=== PATIENT | male | born 1945 | race Caucasian/White ===

== ENCOUNTER → 2018-01-11 | Outpatient (CLI) | payer MEDICARE, BC ==
--- NOTE | 2018-01-11 18:49 | ECHOF ---
Referral Reason:R60.0 Localized edema MEASUREMENTS -------- HEIGHT: 180.3 cm WEIGHT: 90.7 kg BP: RVIDd: 3.2 cm (< 3.3) IVSd: 1.3 cm (0.6 - 1.1) LVIDd: 4.6 cm (3.9 - 5.3) LVPWd: 1.4 cm (0.6 - 1.1) IVSs: 1.5 cm LVIDs: 2.1 cm LVPWs: 1.5 cm LAESV Index (A-L): 32.95 ml/m Ao Diam: 3.3 cm (2.0 - 3.7) AV Cusp: 1.7 cm (1.5 - 2.6) LA Diam: 3.4 cm (2.7 - 3.8) MV E Geoff: 1.12 m/s MV DecT: 278 ms MV A Geoff: 1.28 m/s MV E/A Ratio: 0.88 RAP: 5.00 mmHg RVSP: 15.99 mmHg FINDINGS -------- Sinus rhythm. This was a technically good study. The left ventricular size is normal. There is mild concentric left ventricular hypertrophy. Overa ll left ventricular systolic function is normal with, an EF between 60 - 65 %. The right ventricle is normal in size and function. LA is midly dilated 29-33ml/m2. RA appears enlarged. Aortic valve is trileaflet and is mildly thickened. There is no evidence of aortic regurgitation. There is no evidence of aortic stenosis. The mitral valve leaflets are mildly thickened. Mild mitral annular calcification present. Mild m itral regurgitation is present. Trace tricuspid regurgitation present. Right ventricular systolic pressure is normal at < 35 mmHg. There is no evidence of pulmonary hypertension. The pulmonic valve was not well visualized. The aortic root size is normal. Normal inferior vena cava with normal inspiratory collapse consistent with estimated right atrial pre ssure of 5 mmHg. There is a trivial pericardial effusion present. CONCLUSIONS -------- 1. Sinus rhythm. 2. This was a technically good study. 3. The left ventricular size is normal. 4. There is mild concentric left ventricular hypertrophy. 5. Overall left ventricular systolic function is normal with, an EF between 60 - 65 %. 6. LA is midly dilated 29-33ml/m2. 7. RA appears enlarged. 8. Aortic valve is trileaflet and is mildly thickened. 9. The mitral valve leaflets are mildly thickened. 10. Mild mitral annular calcification present. 11. Mild mitral regurgitation is present. 12. Trace tricuspid regurgitation present. 13. Right ventricular systolic pressure is normal at < 35 mmHg. 14. There is no evidence of pulmonary hypertension. 15. The pulmonic valve was not well visualized. 16. The aortic root size is normal. GANG SAW OPERATOR: Abelardo Shaffer RDCS
== END | disposition home or self-care (01) ==
LOC: RADECHMAIN 08:26
PROVIDERS: ATTEND Family Medicine
DX: I08.1 Rheumatic disorders of both mitral and tricuspid valves (principal)
CPT/HCPCS: 93306

== ENCOUNTER → 2018-11-08 | Outpatient (CLI) | payer MEDICARE, BC ==
[2018-11-08 17:28] LABS: Basophils # (A) 0.1 k/uL (0-0.2); Basophils % (A) 1 %; Eosinophils # (A) 0.3 k/uL (0-0.7); Eosinophils % (A) 4 %; HCT 40.6 % (39.0-53.0); HGB 13.1 gm/dL (13.0-17.5); Lymphocytes # (A) 1.3 k/uL (1.0-4.8); Lymphocytes % (A) 16 %; MCHC 32.2 g/dL (31.0-37.0); Mean Platelet Volume 7.5; Monocytes # (A) 0.5 k/uL (0-1.0); Monocytes % (A) 6 %; Neutrophils # (A) 6.1 k/uL (1.3-7.7); Neutrophils % (A) 72 %; Platelet Count 227 k/uL (150-450); RBC 4.66 m/uL (4.30-5.90); RDW 14.6 % (11.5-15.5); WBC 8.5 k/uL (3.8-10.6)
[2018-11-08 17:34] LABS: Albumin 4.2 g/dL (3.5-5.0); Calcium 9.3 mg/dL (8.4-10.2); Potassium 4.1 mmol/L (3.5-5.1); Total Bilirubin 0.6 mg/dL (0.2-1.3); Total Protein 6.5 g/dL (6.3-8.2)
== END | disposition home or self-care (01) ==
LOC: LAB 16:45
PROVIDERS: ATTEND Family Medicine
DX: R06.02 Shortness of breath (principal); E78.5 Hyperlipidemia, unspecified; R07.89 Other chest pain; Z79.891 Long term (current) use of opiate analgesic
CPT/HCPCS: 80053; 84443; 85025; 93005

== ENCOUNTER → 2022-03-17 | Outpatient (CLI) | payer MEDICARE, BC ==
--- NOTE | 2022-03-17 10:25 | CT ---
EXAMINATION TYPE: CT abdomen pelvis wo con DATE OF EXAM: 03/17/2022 COMPARISON: Ultrasound kidneys 02/21/2014 HISTORY: Gross Hematuria CT DLP: 586.80 mGycm Automated exposure control for dose reduction was used. TECHNIQUE: Helical acquisition of images was performed from the lung bases through the pelvis. FINDINGS: LUNG BASES: The heart is enlarged and there is a vpjof-vs-ojqavihv sized pericardial effusion. Lung b ases are clear. LIVER/GB: No significant abnormality is appreciated. PANCREAS: No significant abnormality is seen. SPLEEN: No significant abnormality is seen. ADRENALS: No significant abnormality is seen. KIDNEYS: Right kidney: There is a 2 mm posterior calyx midpole calcification. Very mild prominence of the pelv ic calyceal system with no evidence of overt hydronephrosis or hydroureter. No ureteral calcification s. Left kidney: No hydronephrosis or nephrolithiasis. There are 2 hyperdense lesions involving the left kidney the largest measuring 1 cm. Most likely etiology is a hemorrhagic cyst which could be confirme d with MRI to exclude other more aggressive etiologies. Bilateral moderately mild perinephric edema is a nonspecific finding associated with infectious etiol ogy correlate with urinalysis. URINARY BLADDER: No significant abnormality is seen. ADENOPATHY: None visualized. OSSEOUS STRUCTURES: Multilevel hypertrophic and degenerative changes of the spine. With the most mar ked findings at L4-5 and L5-S1. BOWEL: No significant abnormality is seen. OTHER: Atherosclerotic changes of the aorta with no evidence of aneurysm. There is mild subcutaneous edema. Prostate gland is enlarged. Calcifications in the pelvis appear to lie outside of the ureteral system are suggestive of vascular calcifications. IMPRESSION: 1. Nonobstructing 3 mm mid pole right ureteral calculus. 2. There are hyperdense lesions within the left kidney by noncontrast technique most likely on the ba sis of hemorrhagic cyst. Correlation with MRI can be obtained to exclude other more aggressive etiolo gies should can occasionally demonstrate a similar finding. 3. Bilateral mild perinephric edema is a nonspecific finding. Correlation with urinalysis recommended . 4. Marked cardiomegaly with small to moderate pericardial effusion
== END | disposition home or self-care (01) ==
LOC: RADCTMAIN 07:48
PROVIDERS: ATTEND Urology
DX: N20.1 Calculus of ureter (principal); I31.39 Other pericardial effusion (noninflammatory); I51.7 Cardiomegaly; R60.0 Localized edema
CPT/HCPCS: 74176

== ENCOUNTER 2022-08-29 07:43 | Emergency (ER) | payer MEDICARE, BC ==
[2022-08-29 07:53] VITALS: TEMP 98
[2022-08-29] MEDS ORDERED: SODIUM CHLORIDE 0.9% 1,000 ML IV STA (08:04)
--- NOTE | 2022-08-29 08:12 | ED ---
Abdominal Pain HPI - General Chief Complaint: Abdominal Pain Stated Complaint: leg pain/groin pain Time Seen by Provider: 08/29/22 07:54 Source: patient, RN notes reviewed Mode of arrival: ambulatory Limitations: no limitations - History of Present Illness Initial Comments: This is a 77-year-old male who presents to the emergency department for right flank pain. States that the right flank pain is wrapping around into the right groin and is now radiating down the right thigh. This started 4-5 days ago. He notes a history of both kidney stones and kidney failure. The pain in the right groin and right flank feel like a kidney stone, however he has never had pain from a kidney stone and the thigh before. Describes the thigh pain as a spasm. He notes that his mother did have a blood clot in the groin. Denies any pain in the calf or redness/swelling to the leg. He had some nausea earlier in the week, however that has since resolved. Notes that his urine has also been darker than normal. In addition to the symptoms above, states that his blood pressure has been elevated over the last couple of days. He has been increasing his lisinopril and clonidine doses at home. He took his Lisinopril this morning but has not yet taken his Clonidine. Denies any fevers, chills, sore throat, cough, dyspnea, chest pain, palpitations, diarrhea, or headaches. MD Complaint: abdominal pain, flank pain Location: R flank Radiation: RLQ - Related Data Previous Rx's Medication Instructions Recorded Baclofen 5 mg PO TID PRN #15 tablet 08/29/22 Allergies Allergy/AdvReac Type Severity Reaction Status Date / Time Iodinated Contrast Media Allergy Anaphylaxis Verified 08/29/22 07:53 meperidine [From Demerol] Allergy Rash/Hives Verified 08/29/22 07:53 Sulfa (Sulfonamide Allergy Rash/Hives Verified 08/29/22 07:53 Antibiotics) Review of Systems ROS Statement: Those systems with pertinent positive or pertinent negative responses have been documented in the HPI. ROS Other: All systems not noted in ROS Statement are negative. Past Medical History Past Medical History: Diabetes Mellitus, Hypertension Additional Past Medical History / Comment(s): Kidney issues, History of Any Multi-Drug Resistant Organisms: None Reported Past Surgical History: No Surgical Hx Reported Past Psychological History: No Psychological Hx Reported Smoking Status: Never smoker Past Alcohol Use History: None Reported Past Drug Use History: None Reported General Exam Limitations: no limitations General appearance: alert, in distress Head exam: Present: atraumatic, normocephalic, normal inspection Respiratory exam: Present: normal lung sounds bilaterally. Absent: respiratory distress, wheezes, rales, rhonchi, stridor Cardiovascular Exam: Present: regular rate, normal rhythm, normal heart sounds. Absent: systolic murmur, diastolic murmur, rubs, gallop, clicks GI/Abdominal exam: Present: soft, normal bowel sounds. Absent: distended, tenderness, guarding, rebound, rigid, hernia exam: Present: normal inspection. Absent: testicular tenderness Extremities exam: Present: other (Tenderness to palpation over the anterior aspect of the right thigh. No calf tenderness. No erythema or swelling to the leg. 2+ DP and TP pulses and capillary refill <1 second.) Back exam: Present: CVA tenderness (R). Absent: CVA tenderness (L) Neurological exam: Present: alert, oriented X3, CN II-XII intact Psychiatric exam: Present: normal affect, normal mood Skin exam: Present: warm, dry, intact, normal color. Absent: rash Course Vital Signs 08/29/22 08/29/22 08/29/22 07:50 08:55 09:51 Temperature 98 F Pulse Rate 80 62 75 Respiratory 20 18 18 Rate Blood Pressure 194/78 198/83 200/97 O2 Sat by Pulse 99 98 97 Oximetry 08/29/22 08/29/22 08/29/22 10:22 10:59 11:34 Temperature Pulse Rate 80 83 Respiratory 18 18 Rate Blood Pressure 182/87 180/79 187/80 O2 Sat by Pulse 97 98 Oximetry 08/29/22 12:26 Temperature 98 F Pulse Rate 83 Respiratory 18 Rate Blood Pressure 187/80 O2 Sat by Pulse 98 Oximetry Medical Decision Making - Medical Decision Making This is a 77-year-old male who presents to the emergency department for right flank pain and abdominal pain. Was pt. sent in by a medical professional or institution? @ -No Did you speak to anyone other than the patient for history? @ -No Did you review nursing and triage notes? @ -Yes, and I agree, it is accurate with regards to the patient's symptoms. Were old charts reviewed? @ -No Differential Diagnosis? @ -Differential Flank Pain: UTI, pyelonephritis, ureteral calculus, contusion, musculoskeletal, this is not meant to be an all-inclusive list. EKG interpreted by me (3pts min.)? @ -Not obtained X-rays interpreted by me (1pt min.)? @ -Not obtained CT interpreted by me (1pt min.)? @ -Computed tomography scan of the abdomen and pelvis obtained. My interpretation identifies no evidence of a renal calculus or hydronephrosis. U/S interpreted by me (1pt. min.)? @ -Not obtained What testing was considered but not performed? (CT, X-rays, U/S, labs)? Why? @ -None What meds were considered but not given? Why? @ -None Did you discuss the management of the patient with other professionals? @ -No Did you reconcile home meds? @ -No Was smoking cessation discussed for >3mins.? @ -No Was critical care preformed (if so, how long)? @ -No Were there social determinants of health that impacted care today? How? (Homelessness, low income, unemployed, alcoholism, drug addiction, transportation, low edu. Level, literacy, decrease access to med. care, correction, rehab)? @ -No Was there de-escalation of care discussed even if they declined? (Discuss DNR or withdrawal of care, Hospice)? @ -No What co-morbidities impacted this encounter? (DM, HTN, Smoking, COPD, CAD, Cancer, CVA, Hep., AIDS, mental health diagnosis, sleep apnea, morbid obesity)? @ -DM, HTN, CKD Was patient admitted / discharged? @ -Discharged. Lab work obtained revealing poor kidney function, however these values are stable when compared to the blood work the patient states that he had earlier this week with his hot braider, Dr. Fernandes. UA has a small amount of blood present, there is otherwise no signs of infection. Computed tomography scan of the abdomen and pelvis obtained revealing no evidence of a ureteral calculus or other acute process to account for the patient's symptoms. However, his BP did continue to be elevated. He was first given 20mg IVP labetalol with no improvement, and he was subsequently given hydralazine 10 mg. He did have more improvement after receiving the hydralazine and was given another 10 mg. His BP then remained around 187/80. Discussed with the patient that he needs to keep track of his blood pressure at home, checking it before each meal and before bed each day, and keep a log of these values to review with his primary care provider. Prescription for baclofen provided for any additional muscle cramps/spasms in the leg. He is advised that this may be sedating and he should avoid driving or operating machinery when taking this. Undiagnosed new problem with uncertain prognosis? @ -None Drug Therapy requiring intensive monitoring for toxicity (Heparin, Nitro, Insulin, Cardizem)? @ -None Were any procedures done? @ -None Diagnosis/symptom? @ -Right flank pain, right groin pain, right leg pain Acute, or Chronic, or Acute on Chronic? @ -Acute Uncomplicated (without systemic symptoms) or Complicated (systemic symptoms)? @ -Uncomplicated Side effects of treatment? @ -None Exacerbation, Progression, or Severe Exacerbation] @ -Not applicable Poses a threat to life or bodily function? @ -No Diagnosis/symptom? @ -HTN Acute, or Chronic, or Acute on Chronic? @ -Chronic Uncomplicated (without systemic symptoms) or Complicated (systemic symptoms)? @ -Uncomplicated Side effects of treatment? @ -None Exacerbation, Progression, or Severe Exacerbation] @ -Exacerbation Poses a threat to life or bodily function? @ -This increases his risk for heart attacks and strokes if it is not adequately controlled. Return precautions reviewed in depth, the patient is instructed to return to the emergency department with any new, worsening, or concerning symptoms. Patient verbalized understanding. This case was discussed in detail with the attending ED physician, Dr. Lemos. Presentation, findings, and treatment plan discussed in detail as well. - Lab Data Result diagrams: 08/29/22 08:39 08/29/22 08:39 Lab Results 08/29/22 08/29/22 08/29/22 Range/Units 08:14 08:39 08:39 WBC 8.5 (3.8-10.6) k/uL RBC 4.81 (4.30-5.90) m/uL Hgb 14.3 (13.0-17.5) gm/dL Hct 42.0 (39.0-53.0) % MCV 87.4 (80.0-100.0) fL MCH 29.7 (25.0-35.0) pg MCHC 34.0 (31.0-37.0) g/dL RDW 13.2 (11.5-15.5) % Plt Count 246 (150-450) k/uL MPV 7.4 Neutrophils % 63 % Lymphocytes % 19 % Monocytes % 7 % Eosinophils % 10 % Basophils % 1 % Neutrophils # 5.3 (1.3-7.7) k/uL Lymphocytes # 1.6 (1.0-4.8) k/uL Monocytes # 0.6 (0-1.0) k/uL Eosinophils # 0.8 H (0-0.7) k/uL Basophils # 0.1 (0-0.2) k/uL Sodium (137-145) mmol/L Potassium (3.5-5.1) mmol/L Chloride (98-107) mmol/L Carbon Dioxide (22-30) mmol/L Anion Gap mmol/L BUN (9-20) mg/dL Creatinine (0.66-1.25) mg/dL Est GFR (CKD-EPI)AfAm (>60 ml/min/1.73 sqM) Est GFR (CKD-EPI)NonAf (>60 ml/min/1.73 sqM) Glucose (74-99) mg/dL POC Glucose (mg/dL) 136 H (70-110) mg/dL POC Glu Manager Credit Risk ID Kandis Edmonds Plasma Lactic Acid Alexandro (0.7-2.0) mmol/L Calcium (8.4-10.2) mg/dL Total Bilirubin (0.2-1.3) mg/dL AST (17-59) U/L ALT (4-49) U/L Alkaline Phosphatase (38-126) U/L Total Protein (6.3-8.2) g/dL Albumin (3.5-5.0) g/dL Urine Color Light Yellow Urine Appearance Clear (Clear) Urine pH 6.5 (5.0-8.0) Ur Specific Gazelle 1.008 (1.001-1.035) Urine Protein 3+ H (Negative) Urine Glucose (UA) 4+ H (Negative) Urine Ketones Negative (Negative) Urine Blood Small H (Negative) Urine Nitrite Negative (Negative) Urine Bilirubin Negative (Negative) Urine Urobilinogen <2.0 (<2.0) mg/dL Ur Leukocyte Esterase Negative (Negative) Urine RBC 2 (0-5) /hpf Urine WBC 1 (0-5) /hpf Ur Squamous Epith Cells <1 (0-4) /hpf Hyaline Casts 1 (0-2) /lpf Granular Casts 1 (0) /lpf 08/29/22 08/29/22 08/29/22 Range/Units 08:39 08:39 12:46 WBC (3.8-10.6) k/uL RBC (4.30-5.90) m/uL Hgb (13.0-17.5) gm/dL Hct (39.0-53.0) % MCV (80.0-100.0) fL MCH (25.0-35.0) pg MCHC (31.0-37.0) g/dL RDW (11.5-15.5) % Plt Count (150-450) k/uL MPV Neutrophils % % Lymphocytes % % Monocytes % % Eosinophils % % Basophils % % Neutrophils # (1.3-7.7) k/uL Lymphocytes # (1.0-4.8) k/uL Monocytes # (0-1.0) k/uL Eosinophils # (0-0.7) k/uL Basophils # (0-0.2) k/uL Sodium 138 (137-145) mmol/L Potassium 3.8 (3.5-5.1) mmol/L Chloride 104 (98-107) mmol/L Carbon Dioxide 23 (22-30) mmol/L Anion Gap 11 mmol/L BUN 50 H (9-20) mg/dL Creatinine 2.83 H (0.66-1.25) mg/dL Est GFR (CKD-EPI)AfAm 24 (>60 ml/min/1.73 sqM) Est GFR (CKD-EPI)NonAf 21 (>60 ml/min/1.73 sqM) Glucose 133 H (74-99) mg/dL POC Glucose (mg/dL) 217 H (70-110) mg/dL POC Glu Manager Credit Risk ID Kandis Edmonds Plasma Lactic Acid Alexandro 1.0 (0.7-2.0) mmol/L Calcium 8.8 (8.4-10.2) mg/dL Total Bilirubin 0.5 (0.2-1.3) mg/dL AST 23 (17-59) U/L ALT 18 (4-49) U/L Alkaline Phosphatase 105 (38-126) U/L Total Protein 6.3 (6.3-8.2) g/dL Albumin 4.0 (3.5-5.0) g/dL Urine Color Urine Appearance (Clear) Urine pH (5.0-8.0) Ur Specific Gazelle (1.001-1.035) Urine Protein (Negative) Urine Glucose (UA) (Negative) Urine Ketones (Negative) Urine Blood (Negative) Urine Nitrite (Negative) Urine Bilirubin (Negative) Urine Urobilinogen (<2.0) mg/dL Ur Leukocyte Esterase (Negative) Urine RBC (0-5) /hpf Urine WBC (0-5) /hpf Ur Squamous Epith Cells (0-4) /hpf Hyaline Casts (0-2) /lpf Granular Casts (0) /lpf - Radiology Data Radiology results: report reviewed, image reviewed Disposition Clinical Impression: Right flank pain, Hypertension, Right leg pain Disposition: HOME SELF-CARE Instructions (If sedation given, give patient instructions): Hypertension (ED), Flank Pain (ED) Additional Instructions: Return to the emergency department with any new, worsening, or concerning symptoms. Keep a log of your blood pressures before meals and before bed each night and review these values with your primary care provider to discuss if additional medication adjustments are necessary. Follow up with your primary care provider in 1-2 days. Prescriptions: Baclofen 5 mg PO TID PRN #15 tablet PRN Reason: Spasms Is patient prescribed a controlled substance at d/c from ED?: No Referrals: Lowell Moore MD [Primary Care Provider] - 1-2 days
[2022-08-29 08:17] LABS: Glucose,Whole Blood 136 mg/dL (70-110)
[2022-08-29] MEDS ORDERED: LABETALOL 5 MG/ML VIAL MDV IVP STA (08:38)
[2022-08-29 08:56] VITALS: RESP 18
[2022-08-29 09:12] LABS: Basophils # (A) 0.1 k/uL (0-0.2); Basophils % (A) 1 %; Eosinophils # (A) 0.8 k/uL (0-0.7); Eosinophils % (A) 10 %; HGB 14.3 gm/dL (13.0-17.5); Lymphocytes # (A) 1.6 k/uL (1.0-4.8); Lymphocytes % (A) 19 %; MCH 29.7 pg (25.0-35.0); MCV 87.4 fL (80.0-100.0); Mean Platelet Volume 7.4; Monocytes # (A) 0.6 k/uL (0-1.0); Monocytes % (A) 7 %; Neutrophils # (A) 5.3 k/uL (1.3-7.7); Neutrophils % (A) 63 %; Platelet Count 246 k/uL (150-450); RBC 4.81 m/uL (4.30-5.90); RDW 13.2 % (11.5-15.5); WBC 8.5 k/uL (3.8-10.6)
[2022-08-29 09:18] LABS: Appearance,Urine Clear (Clear); Bilirubin,Urine Negative (Negative); Blood,Urine Small (Negative); Color,Urine Light Yellow; Glucose,Urine (UA) 4+ (Negative); Granular Casts,Urine 1 /lpf (0); Hyaline Casts,Urine 1 /lpf (0-2); Ketones,Urine Negative (Negative); Leukocyte Esterase,Urine Negative (Negative); Nitrite,Urine Negative (Negative); PH, Urine 6.5 (5.0-8.0); Protein,Urine 3+ (Negative); RBC,Urine 2 /hpf (0-5); Specific Gravity,Urine 1.008 (1.001-1.035); Squamous Epithelial Cell,Urine <1 /hpf (0-4); Urobilinogen,Urine <2.0 mg/dL (<2.0); WBC,Urine 1 /hpf (0-5)
[2022-08-29 09:28] LABS: Calcium 8.8 mg/dL (8.4-10.2); Potassium 3.8 mmol/L (3.5-5.1); Total Bilirubin 0.5 mg/dL (0.2-1.3); Total Protein 6.3 g/dL (6.3-8.2)
--- NOTE | 2022-08-29 09:30 | CT ---
EXAMINATION TYPE: CT abdomen pelvis wo con DATE OF EXAM: 08/29/2022 HISTORY: right flank and groin pain CT DLP: 809.2 mGycm. Automated Exposure Control for Dose Reduction was Utilized. TECHNIQUE: CT scan of the abdomen and pelvis is performed without oral or IV contrast. COMPARISON: Prior CT March 17, 2022 FINDINGS: Within the limitations of a non-contrast study, the following observations are made. LUNG BASES: Trace bilateral pleural effusions on current study. Small to tiny pericardial effusion re demonstrated. Coronary artery calcification again seen. Calcific agent level of the mitral valve rede monstrated LIVER/GB: No significant abnormality is appreciated. PANCREAS: No significant abnormality is seen. SPLEEN: No significant abnormality is seen. ADRENALS: No significant abnormality is seen. KIDNEYS: Cortical thinning in both kidneys redemonstrated. Stable Stable nonspecific 1.1 cm round hyp erdense lesions left kidney mid pole level axial image 50 and lower pole level medially axial image 5 5 Favoring proteinaceous or hemorrhagic cysts. Advise nonemergent follow-up to confirm. Stable Single 2-3 mm nonobstructing calculus right kidney coronal image 64. No hydronephrosis or obstructing urina ry calculi seen bilaterally. No intraluminal calculi in the bladder. BOWEL: No significant abnormality is seen. GENITAL ORGANS: Mildly enlarged prostate consistent with BPH redemonstrated. LYMPH NODES: No greater than 1cm abdominal or pelvic lymph nodes are appreciated. OSSEOUS STRUCTURES: Moderate to severe disc space narrowing with vacuum disc phenomenon at lumbosacra l junction. Multilevel facet arthropathy in the lumbar spine. OTHER: Small to moderate-size fat-containing umbilical hernia. IMPRESSION: No hydronephrosis or obstructing ureteric calculi seen seen bilaterally. No new or acute findings evident.
[2022-08-29] MEDS ORDERED: hydrALAZINE HCL 20 MG/ML 1 ML VIAL IVP STA ×2 (09:59→11:06)
[2022-08-29] MEDS ORDERED: LORazepam 1 MG TAB PO STA (10:23)
[2022-08-29 11:34] VITALS: BP 187/80; PULSE 83
[2022-08-29 12:47] LABS: Glucose,Whole Blood 217 mg/dL (70-110)
== END 2022-08-29 12:48 | disposition home or self-care (01) ==
LOC: EC 07:43
DX: R10.9 Unspecified abdominal pain (principal); I10 Essential (primary) hypertension; M79.604 Pain in right leg; E11.9 Type 2 diabetes mellitus without complications; Z91.041 Radiographic dye allergy status; Z88.2 Allergy status to sulfonamides; Z88.5 Allergy status to narcotic agent
CPT/HCPCS: 36415; 80053; 83605; 85025; 81001; 74176; 99284; 96374; 96375; 96376; 96361; J0360

== ENCOUNTER 2022-09-24 11:41 | Emergency (ER) | payer MEDICARE, BC ==
[2022-09-24 11:46] VITALS: RESP 18
[2022-09-24] MEDS ORDERED: FAMOTIDINE 20 MG/2 ML VIAL IV STA (12:08)
[2022-09-24] MEDS ORDERED: diphenhydrAMINE 50 MG/ML 1 ML VIAL IVP STA (12:08)
[2022-09-24] MEDS ORDERED: SODIUM CHLORIDE 0.9% 500 ML 500 ML IV STA (12:08)
[2022-09-24] MEDS ORDERED: methylPREDNISolone SOD SUCCI 125 MG/2 ML VIAL IV STA (12:08)
--- NOTE | 2022-09-24 12:40 | XR ---
EXAMINATION TYPE: XR chest 1V portable DATE OF EXAM: 09/24/2022 HISTORY: Shortness of breath. COMPARISON: 03/24/2013 TECHNIQUE: Single view of the chest is submitted. FINDINGS: Demonstrated are scattered senescent parenchymal change. There is no evidence for focal infiltrate. The heart is stable. Hilar and mediastinal structures are within normal limits. Degenerative changes are seen of the dorsal spine. IMPRESSION: 1. Chronic changes without evidence for acute pulmonary disease.
[2022-09-24 12:41] LABS: Basophils # (A) 0.1 k/uL (0-0.2); Basophils % (A) 1 %; Eosinophils # (A) 0.8 k/uL (0-0.7); Eosinophils % (A) 13 %; HCT 35.9 % (39.0-53.0); HGB 12.7 gm/dL (13.0-17.5); Lymphocytes # (A) 1.4 k/uL (1.0-4.8); Lymphocytes % (A) 22 %; MCH 30.9 pg (25.0-35.0); MCHC 35.4 g/dL (31.0-37.0); MCV 87.3 fL (80.0-100.0); Mean Platelet Volume 7.6; Monocytes # (A) 0.5 k/uL (0-1.0); Monocytes % (A) 7 %; Neutrophils # (A) 3.6 k/uL (1.3-7.7); Neutrophils % (A) 55 %; Platelet Count 232 k/uL (150-450); RBC 4.11 m/uL (4.30-5.90); WBC 6.5 k/uL (3.8-10.6)
[2022-09-24 12:51] LABS: ALT 19 U/L (4-49); AST 23 U/L (17-59); African American GFR (CKD) 19 (>60 ml/min/1.73 sqM); Albumin 3.6 g/dL (3.5-5.0); Alkaline Phosphatase 82 U/L (38-126); Anion Gap 8 mmol/L; Blood Urea Nitrogen 57 mg/dL (9-20); Calcium 8.4 mg/dL (8.4-10.2); Carbon Dioxide 22 mmol/L (22-30); Chloride 104 mmol/L (98-107); Glucose 56 mg/dL (74-99); Non-African American GFR(CKD) 17 (>60 ml/min/1.73 sqM); Potassium 3.9 mmol/L (3.5-5.1); Sodium 134 mmol/L (137-145); Total Bilirubin 0.6 mg/dL (0.2-1.3); Total Protein 5.7 g/dL (6.3-8.2)
--- NOTE | 2022-09-24 14:05 | ED ---
General Adult HPI - General Chief complaint: Allergic Reaction Stated complaint: Allergic Reaction Time Seen by Provider: 09/24/22 11:48 Source: patient, RN notes reviewed, old records reviewed Mode of arrival: wheelchair - History of Present Illness Initial comments: Patient is a 77-year-old male who presents here to department concern for an ALLERGIC reaction. States he took his dose of calcitriol this morning which was a new medication as well as lisinopril and woke up with some right inferior lip swelling and some mild tongue swelling. No difficulty in breathing. No difficulty in swallowing. CT did not have much of an appetite. Was concerned and decided to come the emergency department for further evaluation of her concern for ALLERGIC reaction. States this is not occurred previously. Does have a history of CK D and is being scheduled to obtain dialysis access to receive dialysis for his CK D. His no other acute complaints at this time. Denies any nausea or vomiting. Denies any rashes or itchiness. Denies any lightheadedness. Presents here concern for an ALLERGIC reaction. denies any difficulty breathing. - Related Data Home Medications Medication Instructions Recorded Confirmed Atorvastatin [Lipitor] 40 mg PO DAILY 09/24/22 09/24/22 Empagliflozin [Jardiance] 10 mg PO DAILY 09/24/22 09/24/22 Ergocalciferol (Vitamin D2) 1,250 mcg PO SA 09/24/22 09/24/22 [Drisdol (50,000 Iu)] Furosemide [Lasix] 40 mg PO BID 09/24/22 09/24/22 HYDROcodone/APAP 10-325MG [Hettick 1 tab PO TID PRN 09/24/22 09/24/22 10-325] Insulin Glargine,Hum.rec.anlog 15 units SQ DAILY 09/24/22 09/24/22 [Lantus Solostar Pen] Insulin Lispro [humaLOG Kwikpen] See Protocol SQ TID-W/MEALS PRN 09/24/22 09/24/22 LORazepam [Ativan] 0.5 mg PO HS PRN 09/24/22 09/24/22 NIFEdipine XL [Procardia XL] 60 mg PO BID 09/24/22 09/24/22 Potassium Chloride ER [K-Dur 10] 10 meq PO DAILY 09/24/22 09/24/22 Sertraline [Zoloft] 50 mg PO DAILY 09/24/22 09/24/22 Tamsulosin [Flomax] 0.4 mg PO BID 09/24/22 09/24/22 cloNIDine HCL [Catapres] 0.2 mg PO BID 09/24/22 09/24/22 hydrALAZINE HCL [Apresoline] 25 mg PO TID 09/24/22 09/24/22 hydrOXYzine pamoate [hydrOXYzine 25 mg PO Q8H PRN 09/24/22 09/24/22 PAMOATE] lisinopriL [Zestril] 5 mg PO BID 09/24/22 09/24/22 Previous Rx's Medication Instructions Recorded Baclofen 5 mg PO TID PRN #15 tablet 08/29/22 Famotidine [Pepcid] 20 mg PO DAILY 7 Days #7 tablet 09/24/22 predniSONE [Deltasone] 20 mg PO DAILY 3 Days #3 tab 09/24/22 Allergies Allergy/AdvReac Type Severity Reaction Status Date / Time calcitriol Allergy Swelling, Verified 09/24/22 13:53 Rash/hives Iodinated Contrast Media Allergy Anaphylaxis Verified 09/24/22 13:53 meperidine [From Demerol] Allergy Rash/Hives Verified 09/24/22 13:53 Sulfa (Sulfonamide Allergy Rash/Hives Verified 09/24/22 13:53 Antibiotics) Review of Systems ROS Statement: Those systems with pertinent positive or pertinent negative responses have been documented in the HPI. Review of Systems: CONST: Denies fever EYES: Denies blurry vision ENT: Denies nasal congestion C/V: Denies Chest pain RESP: Denies shortness of breath GI: Denies abdominal pain : Denies dysuria SKIN: Denies rash. MSK: Denies joint pain. NEURO: Denies headache ROS Other: All systems not noted in ROS Statement are negative. Past Medical History Past Medical History: Diabetes Mellitus, Hypertension Additional Past Medical History / Comment(s): Kidney issues, History of Any Multi-Drug Resistant Organisms: None Reported Past Surgical History: No Surgical Hx Reported Past Psychological History: No Psychological Hx Reported Smoking Status: Never smoker Past Alcohol Use History: None Reported Past Drug Use History: None Reported General Exam - General Exam Comments Initial Comments: General: Appears in no acute distress. HEAD: Normal with no signs of head trauma. EYES: PERRLA, EOMI, conjunctiva normal, no discharge. Pupils are 3 mm and equal bilaterally. ENT: Hearing grossly intact. Right inferior lip is swollen with some mild tongue swelling. Uvula is not swollen. Uvula is midline. Posterior oropharynx is patent and within normal limits. No stridor on auscultation. Patient is able to swallow and tolerate secretions. RESPIRATORY: Clear breath sounds bilaterally. No wheezes, rales, or rhonchi. C/V: Regular rate and rhythm. S1 and S2 auscultated, peripheral pulses 2+ and intact throughout ABD: Abd is soft, nontender, nondistended EXT: Normal range of motion, no obvious deformity SKIN: No rashes or lesions observed on exposed skin. NEURO: Alert and oriented 4. Course Vital Signs 09/24/22 11:42 Temperature 98.0 F Pulse Rate 91 Respiratory 18 Rate Blood Pressure 171/73 O2 Sat by Pulse 98 Oximetry Medical Decision Making - Medical Decision Making Was pt. sent in by a medical professional or institution (, PA, [employer], urgent care, hospital, or correction...) When possible be specific @ -No Did you speak to anyone other than the patient for history (EMS, parent, family, police, friend...)? What history was obtained from this source @ -No Did you review nursing and triage notes (agree or disagree)? Why? @ -I reviewed and agree with nursing and triage notes Were old charts reviewed (outside hosp., previous admission, EMS record, old EKG, old radiological studies, urgent care reports/EKG's, correction records)? Report findings @ -No old charts were reviewed Differential Diagnosis (chest pain, altered mental status, abdominal pain women, abdominal pain men, vaginal bleeding, weakness, fever, dyspnea, syncope, headache, dizziness, GI bleed, back pain, seizure, CVA, palpatations, mental health, musculoskeletal)? @ -ALLERGIC reaction, angioedema, dehydration, anaphylaxis. This list is not all inclusive. EKG interpreted by me (3pts min.). @ -As above X-rays interpreted by me (1pt min.). @ -Chest x-ray reveals no obvious acute cardio, process. CT interpreted by me (1pt min.). @ -None done U/S interpreted by me (1pt. min.). @ -None done What testing was considered but not performed or refused? (CT, X-rays, U/S, labs)? Why? @ -None What meds were considered but not given or refused? Why? @ -None Did you discuss the management of the patient with other professionals (professionals i.e. , PA, [employer], lab, RT, psych nurse, social work professor, scrum product owner, teacher, real estate utilization officer, case checker)? Give summary @ -No Was smoking cessation discussed for >3mins.? @ -No Was critical care preformed (if so, how long)? @ -No Were there social determinants of health that impacted care today? How? (Homelessness, low income, unemployed, alcoholism, drug addiction, transportation, low edu. Level, literacy, decrease access to med. care, [facility], rehab)? @ -No Was there de-escalation of care discussed even if they declined (Discuss DNR or withdrawal of care, Hospice)? DNR status @ -No What co-morbidities impacted this encounter? (DM, HTN, Smoking, COPD, CAD, Cancer, CVA, ARF, Chemo, Hep., AIDS, mental health diagnosis, sleep apnea, morbid obesity)? @ -None Was patient admitted / discharged? Hospital course, mention meds given and route, prescriptions, significant lab abnormalities, going to OR and other pertinent info. @ -Based on the patient's presentation and physical exam, presents with what appears to be very localized ALLERGIC reaction or possible angioedema. He is on lisinopril. I would like to obtain basic labs as he does have a history of CK D as well as chest x-ray and EKG. He will be provided with doses of IV Solu- Medrol, Benadryl, famotidine for ALLERGIC reaction as well as a small fluid bolus. He was in agreement this plan. Vital signs within except for limits. Patient's airway is intact and patent. We will continue to monitor patient's symptoms. Symptoms seem to have started at 8 AM this morning. Patient's labs returned remarkable for elevated BUN/creatinine in setting of CK D. Patient has known elevation in both of these. Arranging for dialysis on an outpatient basis. Patient is hyperglycemic to 56 with a history of diabetes and will be given food. Remainder the labs are within except for limits. Imaging unremarkable. EKG within acceptable limits. No indication for emergent dialysis at this time. On reevaluation, patient is feeling improved. I would like her observed him for a period of time here in the emergency department. He was in agreement this plan. We discussed his workup. We discussed the diagnosis of ALLERGIC reaction versus angioedema. I recommended he hold his calcitriol as well as lisinopril over concern for possible ALLERGIC reaction to medication or possible angioedema from lisinopril. He was in agreement this plan. Patient was observed, and patient remained stable. Swelling is improved. He'll be discharged, this time with strict return precautions. I will put him on a short course of steroids for home. He will follow up with his PCP next week. 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 We discussed that his kidney function, while slightly worsened from prior visit, is known to be poor and is having outpatient dialysis arranged. I do not believe he requires admission at this time as there is no indication for emergent dialysis and he was in agreement with the plan. I will provide the patient with a prescription for prednisone, famotidine. I instructed the patient to follow up with their PCP in the next 1-3 days. . I explained that the patient should return to the emergency department if they experience any worsening symptoms. Strict return precautions were discussed with the patient. The patient expressed understanding of these instructions. I answered all questions that the patient had. The patient was discharged home in good condition with their prescriptions and follow up information. Undiagnosed new problem with uncertain prognosis? @ -No Drug Therapy requiring intensive monitoring for toxicity (Heparin, Nitro, Insulin, Cardizem)? @ -No Were any procedures done? @ -No Diagnosis/symptom? @ -ALLERGIC reaction to calcitriol versus angioedema from lisinopril Acute, or Chronic, or Acute on Chronic? @ -Acute Uncomplicated (without systemic symptoms) or Complicated (systemic symptoms)? @ -Complicated Side effects of treatment? @ -No Exacerbation, Progression, or Severe Exacerbation? @ -No Poses a threat to life or bodily function? How? (Chest pain, [place], [place], pneumonia, PE, COPD, DKA, ARF, appy, cholecystitis, CVA, Diverticulitis, Homicidal, Miller icidal, threat to staff... and all critical care pts) @ -No Diagnosis/symptom? @ -Hypoglycemia in the setting of diabetes Acute, or Chronic, or Acute on Chronic? @ -Acute Uncomplicated (without systemic symptoms) or Complicated (systemic symptoms)? @ -Uncomplicated Side effects of treatment? @ -none Exacerbation, Progression, or Severe Exacerbation] @ -no Poses a threat to life or bodily function? @ -no Diagnosis/symptom? @ -CK D Acute, or Chronic, or Acute on Chronic? @ -Chronic Uncomplicated (without systemic symptoms) or Complicated (systemic symptoms)? @ -Uncomplicated Side effects of treatment? @ -[none] Exacerbation, Progression, or Severe Exacerbation] @ -[no] Poses a threat to life or bodily function? @ -[no] - Lab Data Result diagrams: 09/24/22 12:10 09/24/22 12:10 Lab Results 09/24/22 09/24/22 09/24/22 Range/Units 12:10 12:10 14:33 WBC 6.5 (3.8-10.6) k/uL RBC 4.11 L (4.30-5.90) m/uL Hgb 12.7 L (13.0-17.5) gm/dL Hct 35.9 L (39.0-53.0) % MCV 87.3 (80.0-100.0) fL MCH 30.9 (25.0-35.0) pg MCHC 35.4 (31.0-37.0) g/dL RDW 13.0 (11.5-15.5) % Plt Count 232 (150-450) k/uL MPV 7.6 Neutrophils % 55 % Lymphocytes % 22 % Monocytes % 7 % Eosinophils % 13 % Basophils % 1 % Neutrophils # 3.6 (1.3-7.7) k/uL Lymphocytes # 1.4 (1.0-4.8) k/uL Monocytes # 0.5 (0-1.0) k/uL Eosinophils # 0.8 H (0-0.7) k/uL Basophils # 0.1 (0-0.2) k/uL Sodium 134 L (137-145) mmol/L Potassium 3.9 (3.5-5.1) mmol/L Chloride 104 (98-107) mmol/L Carbon Dioxide 22 (22-30) mmol/L Anion Gap 8 mmol/L BUN 57 H (9-20) mg/dL Creatinine 3.39 H (0.66-1.25) mg/dL Est GFR (CKD-EPI)AfAm 19 (>60 ml/min/1.73 sqM) Est GFR (CKD-EPI)NonAf 17 (>60 ml/min/1.73 sqM) Glucose 56 L (74-99) mg/dL POC Glucose (mg/dL) 234 H (70-110) mg/dL POC Glu Wheelchair Van Driver ID Tanya Casanova Calcium 8.4 (8.4-10.2) mg/dL Total Bilirubin 0.6 (0.2-1.3) mg/dL AST 23 (17-59) U/L ALT 19 (4-49) U/L Alkaline Phosphatase 82 (38-126) U/L Total Protein 5.7 L (6.3-8.2) g/dL Albumin 3.6 (3.5-5.0) g/dL - EKG Data -: EKG Interpreted by Me EKG Comments: 12-lead Electrocardiogram Interpretation Note EKG was reviewed and interpreted by myself. 12-lead ECG performed at 1151 is interpreted by me as revealing normal sinus rhythm, with first-degree AV block and PVCs at a rate of 83 beats per minute. Rapelje is normal. NC interval is shortened 24 ms, QRS duration is 172 ms, QTc is 486 ms.. There were no ST or T wave abnormalities to suggest myocardial ischemia or injury. R wave progression across the precordium was satisfactory. By my interpretation this EKG is non- diagnostic for acute ischemia. Disposition Clinical Impression: Allergic reaction, Angioedema, CKD (chronic kidney disease), Hypoglycemia Disposition: HOME SELF-CARE Condition: Good Additional Instructions: stop taking lisinopril and calcitriol. Prescriptions: predniSONE [Deltasone] 20 mg PO DAILY 3 Days #3 tab Famotidine [Pepcid] 20 mg PO DAILY 7 Days #7 tablet Is patient prescribed a controlled substance at d/c from ED?: No Referrals: Lowell Moore MD [Primary Care Provider] - 1-2 days Time of Disposition: 14:30
[2022-09-24 14:35] LABS: Glucose,Whole Blood 234 mg/dL (70-110)
[2022-09-24 14:51] VITALS: BP 175/86; PULSE 83; TEMP 97
== END 2022-09-24 14:55 | disposition home or self-care (01) ==
LOC: EC 11:41
DX: T78.3XXA Angioneurotic edema, initial encounter (principal); T45.2X5A Adverse effect of vitamins, initial encounter; E11.649 Type 2 diabetes mellitus with hypoglycemia without coma; I12.9 Hypertensive chronic kidney disease with stage 1 through stage 4 chronic kidney disease, or unspecified chronic kidney disease; N18.9 Chronic kidney disease, unspecified; E11.22 Type 2 diabetes mellitus with diabetic chronic kidney disease; Z88.2 Allergy status to sulfonamides; Z88.5 Allergy status to narcotic agent; Z91.048 Other nonmedicinal substance allergy status; Z79.4 Long term (current) use of insulin; Z79.84 Long term (current) use of oral hypoglycemic drugs; Z79.899 Other long term (current) drug therapy
CPT/HCPCS: 36415; 93005; 80053; 85025; 71045; 99284; 96374; 96375 ×2; 96361; J1200; J2930

== ENCOUNTER 2022-10-09 21:28 | Emergency (ER) | payer MEDICARE, BC ==
[2022-10-09 21:34] VITALS: TEMP 98.1
[2022-10-09] MEDS ORDERED: DEXTROSE 50% SYRINGE 50 ML IVP STA ×2 (21:35→21:36)
[2022-10-09 21:37] LABS: Glucose,Whole Blood 35 mg/dL (70-110)
[2022-10-09] MEDS ORDERED: cloNIDine HCL 0.2 MG TAB PO STA (22:05)
[2022-10-09] MEDS ORDERED: hydrALAZINE HCL 25 MG TAB PO STA (22:05)
[2022-10-09 22:23] LABS: Glucose,Whole Blood 156 mg/dL (70-110)
[2022-10-09 22:34] LABS: Basophils % (A) 0 %; Eosinophils # (A) 0.7 k/uL (0-0.7); Eosinophils % (A) 6 %; HCT 39.3 % (39.0-53.0); HGB 13.3 gm/dL (13.0-17.5); Lymphocytes # (A) 1.3 k/uL (1.0-4.8); Lymphocytes % (A) 10 %; MCH 29.3 pg (25.0-35.0); MCHC 33.9 g/dL (31.0-37.0); MCV 86.4 fL (80.0-100.0); Mean Platelet Volume 7.4; Monocytes # (A) 0.6 k/uL (0-1.0); Monocytes % (A) 5 %; Neutrophils # (A) 9.8 k/uL (1.3-7.7); Neutrophils % (A) 78 %; Platelet Count 258 k/uL (150-450); RBC 4.54 m/uL (4.30-5.90); RDW 13.2 % (11.5-15.5); WBC 12.5 k/uL (3.8-10.6)
[2022-10-09] MEDS ORDERED: LORazepam 1 MG TAB PO STA (22:36)
--- NOTE | 2022-10-09 22:53 | ED ---
General Adult HPI - General Chief complaint: Altered Mental Status Stated complaint: AMS Time Seen by Provider: 10/09/22 21:35 Source: patient, family, RN notes reviewed, old records reviewed Mode of arrival: wheelchair - History of Present Illness Initial comments: Patient is a 77-year-old male who presents emergency department for hypoglycemia and altered mental status. Patient presents with his friend who states he began acting strangely. Patient is an insulin dependent diabetic and also has a history of CK D and diabetes. Is being worked up for dialysis outpatient. I am familiar with the patient. He presents confused, and patient's blood sugar is 35. IV access will be obtained and we will provide him with a dose of D50 x2. Patient is unable to provide any additional history at this time. Friend states patient did not fall, suffered no injuries, and does have a history of hyperglycemic episodes. - Related Data Home Medications Medication Instructions Recorded Confirmed Atorvastatin [Lipitor] 40 mg PO DAILY 09/24/22 10/09/22 Empagliflozin [Jardiance] 10 mg PO DAILY 09/24/22 10/09/22 Ergocalciferol (Vitamin D2) 1,250 mcg PO SA 09/24/22 10/09/22 [Drisdol (50,000 Iu)] Furosemide [Lasix] 40 mg PO BID 09/24/22 10/09/22 HYDROcodone/APAP 10-325MG [[place] 1 tab PO TID PRN 09/24/22 10/09/22 10-325] Insulin Glargine,Hum.rec.anlog 14 units SQ DAILY 09/24/22 10/09/22 [Lantus Solostar Pen] Insulin Lispro [humaLOG Kwikpen] See Protocol SQ TID-W/MEALS PRN 09/24/22 10/09/22 LORazepam [Ativan] 0.5 mg PO HS PRN 09/24/22 10/09/22 NIFEdipine XL [Procardia XL] 60 mg PO BID 09/24/22 10/09/22 Potassium Chloride ER [K-Dur 10] 10 meq PO DAILY 09/24/22 10/09/22 Sertraline [Zoloft] 50 mg PO DAILY 09/24/22 10/09/22 Tamsulosin [Flomax] 0.4 mg PO BID 09/24/22 10/09/22 hydrALAZINE HCL [Apresoline] 25 mg PO TID 09/24/22 10/09/22 hydrOXYzine pamoate [hydrOXYzine 25 mg PO Q8H PRN 09/24/22 10/09/22 PAMOATE] lisinopriL [Zestril] 5 mg PO BID 09/24/22 10/09/22 cloNIDine HCL [Catapres] 0.1 mg PO DAILY PRN 10/09/22 10/09/22 cloNIDine HCL [Catapres] 0.1 mg PO TID 10/09/22 10/09/22 Previous Rx's Medication Instructions Recorded Baclofen 5 mg PO TID PRN #15 tablet 08/29/22 Famotidine [Pepcid] 20 mg PO DAILY 7 Days #7 tablet 09/24/22 Allergies Allergy/AdvReac Type Severity Reaction Status Date / Time calcitriol Allergy Swelling, Verified 10/09/22 22:03 Rash/hives Iodinated Contrast Media Allergy Anaphylaxis Verified 10/09/22 22:03 meperidine [From Demerol] Allergy Rash/Hives Verified 10/09/22 22:03 Sulfa (Sulfonamide Allergy Rash/Hives Verified 10/09/22 22:03 Antibiotics) Review of Systems ROS Statement: Those systems with pertinent positive or pertinent negative responses have been documented in the HPI. Review of Systems: CONST: Denies fever EYES: Denies blurry vision ENT: Denies nasal congestion C/V: Denies Chest pain RESP: Denies shortness of breath GI: Denies abdominal pain : Denies dysuria SKIN: Denies rash. MSK: Denies joint pain. NEURO: Denies headache ROS Other: All systems not noted in ROS Statement are negative. Past Medical History Past Medical History: Diabetes Mellitus, Hypertension Additional Past Medical History / Comment(s): Kidney issues, History of Any Multi-Drug Resistant Organisms: None Reported Past Surgical History: No Surgical Hx Reported Past Psychological History: No Psychological Hx Reported Smoking Status: Never smoker Past Alcohol Use History: None Reported Past Drug Use History: None Reported General Exam - General Exam Comments Initial Comments: General: Appears in no acute distress. HEAD: Normal with no signs of head trauma. EYES: PERRLA, EOMI, conjunctiva normal, no discharge. Pupils are 3 mm equal bilaterally. ENT: Hearing grossly intact, normal oropharynx. RESPIRATORY: Clear breath sounds bilaterally. No wheezes, rales, or rhonchi. C/V: Regular rate and rhythm. S1 and S2 auscultated, peripheral pulses 2+ and intact throughout ABD: Abd is soft, nontender, nondistended EXT: Normal range of motion, no obvious deformity SKIN: No rashes or lesions observed on exposed skin. NEURO: Alert but not oriented. Confused. Moving all 4 extremities. Course Vital Signs 10/09/22 10/09/22 10/10/22 21:31 23:13 00:00 Temperature 98.1 F Pulse Rate 94 76 70 Respiratory 18 16 18 Rate Blood Pressure 158/84 190/93 145/75 O2 Sat by Pulse 98 96 97 Oximetry 10/10/22 00:03 Temperature Pulse Rate 77 Respiratory 12 Rate Blood Pressure 145/75 O2 Sat by Pulse 98 Oximetry Medical Decision Making - Medical Decision Making Was pt. sent in by a medical professional or institution (, PA, AIRLINE RESERVATIONIST, urgent care, hospital, or prison...) When possible be specific @ -No Did you speak to anyone other than the patient for history (EMS, parent, family, police, friend...)? What history was obtained from this source @ -I spoke with the patient's friend who is at bedside who inform him of the patient's only became confused while they were with each other. No obvious injuries or acute event that would've precipitated it. Patient does have a history of hyperglycemic episodes from insulin use. Did you review nursing and triage notes (agree or disagree)? Why? @ -I reviewed and agree with nursing and triage notes Were old charts reviewed (outside hosp., previous admission, EMS record, old EKG, old radiological studies, urgent care reports/EKG's, prison records)? Report findings @ -Old charts reviewed from September 2022 Differential Diagnosis (chest pain, altered mental status, abdominal pain women, abdominal pain men, vaginal bleeding, weakness, fever, dyspnea, syncope, headache, dizziness, GI bleed, back pain, seizure, CVA, palpatations, mental health, musculoskeletal)? @ -Hypoglycemia, electrolyte abnormality, infection, this is not all inclusive. EKG interpreted by me (3pts min.). @ -As above X-rays interpreted by me (1pt min.). @ -None done CT interpreted by me (1pt min.). @ -None done U/S interpreted by me (1pt. min.). @ -None done What testing was considered but not performed or refused? (CT, X-rays, U/S, labs)? Why? @ -None What meds were considered but not given or refused? Why? @ -None Did you discuss the management of the patient with other professionals (professionals i.e. , PA, AIRLINE RESERVATIONIST, lab, RT, psych nurse, rn social services, drying oven tender, teacher, bsa/aml compliance officer, rn case mgr)? Give summary @ -No Was smoking cessation discussed for >3mins.? @ -No Was critical care preformed (if so, how long)? @ -No Were there social determinants of health that impacted care today? How? (Homelessness, low income, unemployed, alcoholism, drug addiction, transportation, low edu. Level, literacy, decrease access to med. care, prison, rehab)? @ -No Was there de-escalation of care discussed even if they declined (Discuss DNR or withdrawal of care, Hospice)? DNR status @ -No What co-morbidities impacted this encounter? (DM, HTN, Smoking, COPD, CAD, Cancer, CVA, ARF, Chemo, Hep., AIDS, mental health diagnosis, sleep apnea, morbid obesity)? @ -Insulin dependent diabetes Was patient admitted / discharged? Hospital course, mention meds given and route, prescriptions, significant lab abnormalities, going to OR and other pertinent info. @ -Based on the patient's presentation and physical exam, presents confused with a blood sugar of 35. Likely confusion is from hypoglycemia. IV was obta ined and patient was immediately administered 2 A of D50. Patient's confusion resolved. Currently alert and oriented 4. No acute complaints. Normal neuro exam at this time. His indwelling without issue. NIH is 0. GCS of 15. I did discuss with him and he states he normally takes his insulin as prescribed but does occasionally have these hyper glycemic episodes which is uncertain what they're from. Denies any increased insulin he is from today. Took his normal long-acting in the morning as well as a single dose of was prandial insulin. States he may have eaten a little bit less today as well. Patient is also complaining of a headache, states he is due for his blood pressure medications particularly hydralazine as well as clonidine. Both these will be provided to the patient as well as Ativan due to anxiety. We'll obtain basic labs and EKG. We will monitor his blood sugar closely over the course of a few hours. He will be given food to eat. He was in agreement this plan. Vital signs are within acceptable limits. EKG shows chronic findings with no acute changes. Patient's labs are remarkable for CK D which is known within his baseline. Remainder of the labs are within acceptable limits.Repeat blood pressure is improved. Patient's blood sugar remains adequate. He has tolerated oral intake. He would like to go home at this time which I believe is reasonable. He was observed for over 2 hours in the department. Strict return precautions discussed. I instructed the patient to follow up with their PCP in the next 1-3 days. I explained that the patient should return to the emergency department if they experience any worsening symptoms. Strict return precautions were discussed with the patient. The patient expressed understanding of these instructions. I answered all questions that the patient had. The patient was discharged home in good condition with their prescriptions and follow up information. Undiagnosed new problem with uncertain prognosis? @ -No Drug Therapy requiring intensive monitoring for toxicity (Heparin, Nitro, Insulin, Cardizem)? @ -No Were any procedures done? @ -No Diagnosis/symptom? @ -Altered mental status secondary to hypoglycemic episode in the setting of insulin-dependent diabetes Acute, or Chronic, or Acute on Chronic? @ -Acute Uncomplicated (without systemic symptoms) or Complicated (systemic symptoms)? @ -Complicated Side effects of treatment? @ -none Exacerbation, Progression, or Severe Exacerbation] @ -no Poses a threat to life or bodily function? @ -no Diagnosis/symptom? @ -Hypertension Acute, or Chronic, or Acute on Chronic? @ -Acute on chronic Uncomplicated (without systemic symptoms) or Complicated (systemic symptoms)? @ -Uncomplicated Side effects of treatment? @ -none Exacerbation, Progression, or Severe Exacerbation] @ -no Poses a threat to life or bodily function? @ -no Diagnosis/symptom? @ -CK D Acute, or Chronic, or Acute on Chronic? @ -Chronic Uncomplicated (without systemic symptoms) or Complicated (systemic symptoms)? @ -Uncomplicated Side effects of treatment? @ -none Exacerbation, Progression, or Severe Exacerbation] @ -no Poses a threat to life or bodily function? @ -no - Lab Data Result diagrams: 10/09/22 22:26 10/09/22 22:26 Lab Results 10/09/22 10/09/22 10/09/22 Range/Units 21:32 22:21 22:26 WBC 12.5 H (3.8-10.6) k/uL RBC 4.54 (4.30-5.90) m/uL Hgb 13.3 (13.0-17.5) gm/dL Hct 39.3 (39.0-53.0) % MCV 86.4 (80.0-100.0) fL MCH 29.3 (25.0-35.0) pg MCHC 33.9 (31.0-37.0) g/dL RDW 13.2 (11.5-15.5) % Plt Count 258 (150-450) k/uL MPV 7.4 Neutrophils % 78 % Lymphocytes % 10 % Monocytes % 5 % Eosinophils % 6 % Basophils % 0 % Neutrophils # 9.8 H (1.3-7.7) k/uL Lymphocytes # 1.3 (1.0-4.8) k/uL Monocytes # 0.6 (0-1.0) k/uL Eosinophils # 0.7 (0-0.7) k/uL Basophils # 0.0 (0-0.2) k/uL Sodium (137-145) mmol/L Potassium (3.5-5.1) mmol/L Chloride (98-107) mmol/L Carbon Dioxide (22-30) mmol/L Anion Gap mmol/L BUN (9-20) mg/dL Creatinine (0.66-1.25) mg/dL Est GFR (CKD-EPI)AfAm (>60 ml/min/1.73 sqM) Est GFR (CKD-EPI)NonAf (>60 ml/min/1.73 sqM) Glucose (74-99) mg/dL POC Glucose (mg/dL) 35 L 156 H (70-110) mg/dL POC Glu Adult School Counselor Ellie Ordaz Alayna Calcium (8.4-10.2) mg/dL 10/09/22 10/09/22 Range/Units 22:26 23:58 WBC (3.8-10.6) k/uL RBC (4.30-5.90) m/uL Hgb (13.0-17.5) gm/dL Hct (39.0-53.0) % MCV (80.0-100.0) fL MCH (25.0-35.0) pg MCHC (31.0-37.0) g/dL RDW (11.5-15.5) % Plt Count (150-450) k/uL MPV Neutrophils % % Lymphocytes % % Monocytes % % Eosinophils % % Basophils % % Neutrophils # (1.3-7.7) k/uL Lymphocytes # (1.0-4.8) k/uL Monocytes # (0-1.0) k/uL Eosinophils # (0-0.7) k/uL Basophils # (0-0.2) k/uL Sodium 136 L (137-145) mmol/L Potassium 3.6 (3.5-5.1) mmol/L Chloride 104 (98-107) mmol/L Carbon Dioxide 22 (22-30) mmol/L Anion Gap 10 mmol/L BUN 55 H (9-20) mg/dL Creatinine 3.11 H (0.66-1.25) mg/dL Est GFR (CKD-EPI)AfAm 22 (>60 ml/min/1.73 sqM) Est GFR (CKD-EPI)NonAf 19 (>60 ml/min/1.73 sqM) Glucose 154 H (74-99) mg/dL POC Glucose (mg/dL) 250 H (70-110) mg/dL POC Glu Adult School Counselor Nancy Márquez Calcium 8.8 (8.4-10.2) mg/dL - EKG Data -: EKG Interpreted by Me EKG Comments: 12-lead Electrocardiogram Interpretation Note EKG was reviewed and interpreted by myself. 12-lead ECG performed at 2142 is interpreted by me as revealing normal sinus rhythm with first-degree AV block and right bundle branch block at a rate of 91 beats per minute. [place] is normal. MI interval is 237 ms, QRS duration is 172 ms, QTc is 450 ms. Chronic T wave abnormalities.. There were no acute ST or T wave abnormalities to suggest myocardial ischemia or injury. R wave progression across the precordium was satisfactory. By my interpretation this EKG is non-diagnostic for acute ischemia. EKG relatively unchanged when compared with EKG from September 2022. Disposition Clinical Impression: Hypoglycemia, CKD (chronic kidney disease), Hypertension Disposition: HOME SELF-CARE Condition: Good Instructions (If sedation given, give patient instructions): Hypoglycemia in a Person with Diabetes (ED) Is patient prescribed a controlled substance at d/c from ED?: No Referrals: Lowell Moore MD [Primary Care Provider] - 1-2 days Time of Disposition: 23:59
[2022-10-09 22:54] LABS: African American GFR (CKD) 22 (>60 ml/min/1.73 sqM); Anion Gap 10 mmol/L; Blood Urea Nitrogen 55 mg/dL (9-20); Calcium 8.8 mg/dL (8.4-10.2); Carbon Dioxide 22 mmol/L (22-30); Chloride 104 mmol/L (98-107); Glucose 154 mg/dL (74-99); Non-African American GFR(CKD) 19 (>60 ml/min/1.73 sqM); Potassium 3.6 mmol/L (3.5-5.1); Sodium 136 mmol/L (137-145)
[2022-10-10] LABS: Glucose,Whole Blood 250 mg/dL (70-110)
[2022-10-10 00:02] VITALS: BP 145/75
[2022-10-10 00:04] VITALS: PULSE 77; RESP 12
== END 2022-10-10 00:26 | disposition home or self-care (01) ==
LOC: EC 21:28
DX: E11.649 Type 2 diabetes mellitus with hypoglycemia without coma (principal); E11.22 Type 2 diabetes mellitus with diabetic chronic kidney disease; I12.9 Hypertensive chronic kidney disease with stage 1 through stage 4 chronic kidney disease, or unspecified chronic kidney disease; N18.9 Chronic kidney disease, unspecified; Z79.4 Long term (current) use of insulin; Z79.84 Long term (current) use of oral hypoglycemic drugs; Z79.899 Other long term (current) drug therapy; Z88.1 Allergy status to other antibiotic agents; Z88.2 Allergy status to sulfonamides; Z88.5 Allergy status to narcotic agent; Z88.9 Allergy status to unspecified drugs, medicaments and biological substances
CPT/HCPCS: 36415; 80048; 85025; 93005; 96374; 99285

== ENCOUNTER → 2023-08-31 | Outpatient (CLI) | payer MEDICARE, BC ==
[2023-08-31 20:54] LABS: BUN/Creat Ratio 10.88 Ratio (12.00-20.00); Calcium 8.4 mg/dL (8.7-10.3); Carbon Dioxide 21.4 mmol/L (21.6-31.8); Chloride 105 mmol/L (96-109); Glucose 236 mg/dL (70-110); Potassium 4.5 mmol/L (3.5-5.5); Sodium 139 mmol/L (135-145)
== END | disposition home or self-care (01) ==
LOC: LABWHC1 15:05
PROVIDERS: ATTEND Nurse Practitioner Family
DX: I12.9 Hypertensive chronic kidney disease with stage 1 through stage 4 chronic kidney disease, or unspecified chronic kidney disease (principal); N18.9 Chronic kidney disease, unspecified
CPT/HCPCS: 36415; 80048

== ENCOUNTER → 2023-10-18 | Outpatient (CLI) | payer MEDICARE, BC ==
[2023-10-18 13:40] VITALS: TEMP 97.8
[2023-10-18] MEDS: SODIUM CHLORIDE 0.9% 500 ML 500 ML in EMPTY BAG 1 BAG IV PRN (13:41)
[2023-10-18] MEDS: diphenhydrAMINE 50 MG/ML 1 ML VIAL IVP STA (14:05)
[2023-10-18] MEDS: methylPREDNISolone SOD SUCCI 125 MG/2 ML VIAL IV STA (14:07)
[2023-10-18 14:54] VITALS: PULSE 56; RESP 16
[2023-10-18 15:09] VITALS: BP 103/63
== END ==
LOC: PROCWHC3 13:15
PROVIDERS: ATTEND Internal Medicine
DX: N18.4 Chronic kidney disease, stage 4 (severe) (principal); D63.1 Anemia in chronic kidney disease
CPT/HCPCS: 96374; 96375; J1200; Q0138; J2919; G0463; 96365; 99211

== ENCOUNTER → 2023-10-19 | Outpatient (CLI) | payer MEDICARE, BC ==
[2023-10-19 18:34] LABS: Basophils # (A) 0.03 X 10*3/uL (0.00-0.10); Basophils % (A) 0.2 %; Eosinophils # (A) 0.01 X 10*3/uL (0.04-0.35); Eosinophils % (A) 0.1 %; HCT 32.2 % (39.6-50.0); HGB 10.8 g/dL (13.0-17.0); Lymphocytes # (A) 0.86 X 10*3/uL (0.90-5.00); Lymphocytes % (A) 5.6 %; MCH 29.3 pg (27.0-32.0); MCHC 33.5 g/dL (32.0-37.0); MCV 87.3 FL (80.0-97.0); Monocytes # (A) 1.46 X 10*3/uL (0.20-1.00); Monocytes % (A) 9.5 %; NRBC Per 100 WBC 0 X 10*3/uL (0.00-0.01); Neutrophils # (A) 12.81 X 10*3/uL (1.80-7.70); Neutrophils % (A) 83.8 %; Platelet Count 248 X 10*3/uL (140-440); RBC 3.69 X 10*6/uL (4.40-5.60); WBC 15.29 X 10*3/uL (4.50-10.00)
[2023-10-19 18:46] LABS: ALT 28 U/L (10-49); AST 23 U/L (14-35); Albumin 4.5 g/dL (3.8-4.9); Albumin/Globulin Ratio 2.37 Ratio (1.60-3.17); Alkaline Phosphatase 82 U/L (41-126); BUN/Creat Ratio 17.05 Ratio (12.00-20.00); Blood Urea Nitrogen 68.2 mg/dL (9.0-27.0); Calcium 8.7 mg/dL (8.7-10.3); Carbon Dioxide 18.2 mmol/L (21.6-31.8); Chloride 100 mmol/L (96-109); Globulin 1.9 g/dL (1.6-3.3); Glucose 196 mg/dL (70-110); Sodium 136 mmol/L (135-145); Total Bilirubin 0.2 mg/dL (0.3-1.2); Total Protein 6.4 g/dL (6.2-8.2)
== END | disposition home or self-care (01) ==
LOC: LABWHC1 14:26
PROVIDERS: ATTEND Internal Medicine
DX: N18.4 Chronic kidney disease, stage 4 (severe) (principal)
CPT/HCPCS: 36415; 80053; 85025

== ENCOUNTER 2023-11-29 05:40 | Day surgery (SDC) | payer MEDICARE, BC ==
[2023-11-27 17:37] VITALS: BMI 25.1
[~2023-11-29 05:40] MED LIST: LACTATED RINGERS 1,000 ML IV SCH
[2023-11-29] MEDS: LIDOCAINE 1% (10MG/ML) FOR IV START INTRADERMA PRN (06:35)
[2023-11-29] MEDS: IV FLUID CONTINUATION 1,000 ML IV ONE (06:40)
[2023-11-29 06:51] LABS: Basophils # (A) 0.1 k/uL (0-0.2); Basophils % (A) 1 %; Eosinophils # (A) 0.7 k/uL (0-0.7); Eosinophils % (A) 9 %; HCT 34.5 % (39.0-53.0); HGB 11.9 gm/dL (13.0-17.5); Lymphocytes # (A) 1.1 k/uL (1.0-4.8); Lymphocytes % (A) 14 %; MCH 30.5 pg (25.0-35.0); MCHC 34.5 g/dL (31.0-37.0); MCV 88.6 fL (80.0-100.0); Mean Platelet Volume 6.9; Monocytes # (A) 0.7 k/uL (0-1.0); Monocytes % (A) 8 %; Neutrophils # (A) 5.2 k/uL (1.3-7.7); Neutrophils % (A) 66 %; Platelet Count 306 k/uL (150-450); RBC 3.89 m/uL (4.30-5.90); RDW 14.2 % (11.5-15.5); WBC 7.9 k/uL (3.8-10.6)
[2023-11-29] MEDS: ONDANSETRON 4 MG/2 ML VIAL IVP ONE (06:51)
[2023-11-29] MEDS: DEXTROSE 50% SYRINGE 50 ML IVP STA (06:51)
[2023-11-29] MEDS ORDERED: fentaNYL (PF) 50 MCG/ML 2 ML AMP IV PRN (07:00)
[2023-11-29 07:01] LABS: African American GFR (CKD) 16 (>60 ml/min/1.73 sqM); Anion Gap 10 mmol/L; Blood Urea Nitrogen 56 mg/dL (9-20); Calcium 8.9 mg/dL (8.4-10.2); Carbon Dioxide 18 mmol/L (22-30); Chloride 112 mmol/L (98-107); Glucose 64 mg/dL (74-99); Non-African American GFR(CKD) 13 (>60 ml/min/1.73 sqM); Potassium 4.6 mmol/L (3.5-5.1); Sodium 140 mmol/L (137-145)
[2023-11-29] MEDS: MIDAZOLAM 2 MG/2 ML VIAL IV ONE (07:06)
[2023-11-29] MEDS: SODIUM CHLORIDE 0.9% 1,000 ML IV SCH (07:17)
[2023-11-29 07:23] LABS: Glucose,Whole Blood 105 mg/dL (70-110)
[2023-11-29 07:23] LABS: Glucose,Whole Blood 68 mg/dL (70-110)
--- NOTE | 2023-11-29 07:24 | P.ANPRN ---
Procedure Note - Anesthesia - Nerve Block Performed Left Supraclavicular Single Time Out Performed: Yes Date of Procedure: 11/29/23 Procedure Start Time: : Procedure Stop Time: 07:11 Location of Patient: PreOp Indication: Acute Post-Operative Pain, Analgesia, Requested by Surgeon Sedation Type: Sedate with meaningful contact maintained Preparation: Sterile Prep Position: Sitting Catheter: None Needle Types: Pajunk Needle Gauge: 21 Ultrasound used to visualize needle placement: Yes Ultrasound used to observe medication spread: Yes Injectate: 0.5% Ropivacaine (see comment for volume) (Ropiv 20 ml+Decadron 4mg) Blood Aspirated: No Pain Paresthesia on Injection Noted: No Resistance on Injection: Normal Image Stored and Saved: Yes Events: Uneventful and Well Tolerated
[2023-11-29] MEDS ORDERED: fentaNYL (PF) 50 MCG/ML 2 ML AMP ONE (07:28)
[2023-11-29] MEDS ORDERED: ROPIVACAINE 5 MG/ML 30 ML VIAL ONE (07:28)
[2023-11-29] MEDS ORDERED: PROPOFOL 10 MG/ML 20 ML VIAL IV ONE (07:28)
[2023-11-29] MEDS ORDERED: HEPARIN SODIUM,PORCINE 5,000 UNIT/ML 1 ML VIAL ONE (07:28)
[2023-11-29] MEDS ORDERED: KETAMINE HCL IN 0.9 % NACL 50 MG/5 ML SYRINGE ONE (07:28)
[2023-11-29] MEDS ORDERED: DEXAMETHASONE SOD PHOSPHATE 4 MG/ML 1 ML VIAL ONE (07:28)
[2023-11-29] MEDS: GELATIN SPONGE,ABSORB (LARGE) 1 EACH SPONGE TOPICAL ONE (07:56)
[2023-11-29] MEDS: THROMBIN (BOVINE) 5,000 UNIT VIAL TOPICAL ONE (07:56)
[2023-11-29] MEDS: LIDOCAINE 1% INJ 10MG/ML (20 ML MDV) SQ ONE ×2 (07:56)
[2023-11-29] MEDS: HEPARIN SODIUM,PORCINE (1 ML) 2,000 UNIT in SODIUM CHLORIDE 0.9% 500 ML 500 ML IRRIGATION ONE (07:57)
[2023-11-29] MEDS: ceFAZolin 2 GM in SODIUM CHLORIDE 0.9% 500 ML 500 ML IRRIGATION ONE (07:59)
--- NOTE | 2023-11-29 09:01 | P.OP ---
Date of Procedure: 11/29/23 Preoperative Diagnosis: Chronic kidney disease Postoperative Diagnosis: Same Procedure(s) Performed: Left upper extremity radiocephalic fistula creation Anesthesia: NEHEMIAH Surgeon: Dorian Ritchie Estimated Blood Loss (ml): 5 Pathology: none sent Condition: stable Disposition: PACU Description of Procedure: After written and informed consent was obtained from the patient the patient was brought to the operative suite and laid in a supine position. The left arm was prepped and draped in the usual sterile fashion after appropriate anesthesia was performed per the anesthesiologist. Utilizing ultrasound the cephalic vein was visualized and marked and shown to be good size. A small vertical incision was then created with a 15 blade scalpel just proximal to the wrist and dissection was carried down to the radial artery which was dissected free in a circumferential manner. Proximal distal control was then obtained with vessel loops. Attention was then placed back to the cephalic vein which was located and dissected free in a circumferential manner distally to the wrist. At the wrist it was ligated with silk suture. Further dissection was carried around the vein and the vein was brought over to the radial artery. Serial dilation was then performed on the vein and good backbleeding was noted. Patient was administered 3000 units of heparin and the radial artery was clamped at the proximal and distal aspect. Utilizing 11 blade scalpel and arteriotomy was crea chantelle and extended with [place] scissors. There was good brisk backbleeding noted from the radial artery and pulsatile blood flow visualized from the proximal aspect. The vein was then spatulated and an end-to-side anastomosis was created with a 7-0 Prolene suture. Prior to last sutures being placed the control was released from the vein revealing good backbleeding and distal control on the radial artery was released revealing good back flow. The proximal control was then released and good pulsatile blood flow was visualized in the fistula and final sutures were secured. The area was copiously irrigated with antibiotic solution. Hemostasis was assured. The vessels were then interrogated with Doppler which demonstrated good multiphasic signal distal to the anastomosis as well as positive bruit within the vein consistent with good fistula creation. Under ultrasound there was pulsatile flow noted in the cephalic vein. The incision was then closed in a multilayer fashion. The skin was cleansed and dressings were placed. Patient does procedure well and was sent to PACU for recovery. Plan - Discharge Summary Discharge Rx Participant: No New Discharge Prescriptions: No Action Insulin Lispro [humaLOG Kwikpen] See Protocol SQ TID-W/MEALS PRN PRN Reason: high blood sugar Furosemide [Lasix] 40 mg PO BID PRN PRN Reason: pedal edema Sertraline [Zoloft] 75 mg PO HS Potassium Chloride ER [K-Dur 10] 10 meq PO Q3D hydrALAZINE HCL [Apresoline] 50 mg PO BID [place] Vitamin D3 Supplement 1 dose PO DAILY RX: Melatonin [Melatonin ER] 20 - 30 mg PO HS PRN PRN Reason: sleep Tamsulosin [Flomax] 0.4 mg PO BID Insulin Glargine,Hum.rec.anlog [Lantus Solostar Pen] 13 units SQ QAM NIFEdipine XL [Procardia XL] 60 mg PO BID HYDROcodone/APAP 10-325MG [[place] 10-325] 1 tab PO TID PRN PRN Reason: Pain Ergocalciferol (Vitamin D2) [Drisdol (50,000 Iu)] 1,250 mcg PO WE RX: Sodium Bicarbonate Tab 650 mg PO TID Isosorbide Mononitrate [Isosorbide Mononitrate ER] 30 mg PO BID [place] Chloride [Berberine] 500 mg PO DAILY Docusate [Colace] 100 mg PO DAILY hydrOXYzine HCL [Atarax] 25 mg PO TID PRN PRN Reason: Itching paricalcitoL [Zemplar] 1 mcg PO Q3D carvediloL [Coreg] 12.5 mg PO BID Discharge Medication List Ergocalciferol (Vitamin D2) [Drisdol (50,000 Iu)] 1,250 mcg PO WE 09/24/22 [History] Furosemide [Lasix] 40 mg PO BID PRN 09/24/22 [History] HYDROcodone/APAP 10-325MG [[place] 10-325] 1 tab PO TID PRN 09/24/22 [History] Insulin Glargine,Hum.rec.anlog [Lantus Solostar Pen] 13 units SQ QAM 09/24/22 [History] Insulin Lispro [humaLOG Kwikpen] See Protocol SQ TID-W/MEALS PRN 09/24/22 [History] NIFEdipine XL [Procardia XL] 60 mg PO BID 09/24/22 [History] Potassium Chloride ER [K-Dur 10] 10 meq PO Q3D 09/24/22 [History] Sertraline [Zoloft] 75 mg PO HS 09/24/22 [History] Tamsulosin [Flomax] 0.4 mg PO BID 09/24/22 [History] hydrALAZINE HCL [Apresoline] 50 mg PO BID 09/24/22 [History] Berberine Chloride [Berberine] 500 mg PO DAILY 11/27/23 [History] Docusate [Colace] 100 mg PO DAILY 11/27/23 [History] Isosorbide Mononitrate [Isosorbide Mononitrate ER] 30 mg PO BID 11/27/23 [History] [place] Vitamin D3 Supplement 1 dose PO DAILY 11/27/23 [History] RX: Melatonin [Melatonin ER] 20 - 30 mg PO HS PRN 11/27/23 [History] RX: Sodium Bicarbonate Tab 650 mg PO TID 11/27/23 [History] carvediloL [Coreg] 12.5 mg PO BID 11/27/23 [History] hydrOXYzine HCL [Atarax] 25 mg PO TID PRN 11/27/23 [History] paricalcitoL [Zemplar] 1 mcg PO Q3D 11/27/23 [History]
[2023-11-29 09:07] VITALS: TEMP 98
[2023-11-29 09:16] LABS: Glucose,Whole Blood 123 mg/dL (70-110)
[2023-11-29 10:02] VITALS: BP 164/66; PULSE 73; RESP 20
== END 2023-11-29 10:27 | disposition home or self-care (01) ==
LOC: OR 05:40
PROVIDERS: ATTEND Surgery
DX: I12.9 Hypertensive chronic kidney disease with stage 1 through stage 4 chronic kidney disease, or unspecified chronic kidney disease (principal); E11.22 Type 2 diabetes mellitus with diabetic chronic kidney disease; N18.9 Chronic kidney disease, unspecified; G89.18 Other acute postprocedural pain; E78.5 Hyperlipidemia, unspecified; Z79.4 Long term (current) use of insulin; Z79.899 Other long term (current) drug therapy; Z88.8 Allergy status to other drugs, medicaments and biological substances; Z88.5 Allergy status to narcotic agent; Z88.6 Allergy status to analgesic agent
CPT/HCPCS: 64415; 80048; 85025

== ENCOUNTER → 2024-03-07 | Outpatient (CLI) | payer MEDICARE, BC ==
[2024-03-07 20:28] LABS: BUN/Creat Ratio 14.94 Ratio (12.00-20.00); Blood Urea Nitrogen 73.2 mg/dL (9.0-27.0); Calcium 8.1 mg/dL (8.7-10.3); Carbon Dioxide 18.2 mmol/L (21.6-31.8); Chloride 108 mmol/L (96-109); Glucose 62 mg/dL (70-110); Sodium 140 mmol/L (135-145)
[2024-03-07 20:29] LABS: Albumin 4.4 g/dL (3.8-4.9)
== END | disposition home or self-care (01) ==
LOC: LABWHC1 15:48
PROVIDERS: ATTEND Internal Medicine
DX: N18.4 Chronic kidney disease, stage 4 (severe) (principal)
CPT/HCPCS: 36415; 80048; 82040

== ENCOUNTER → 2024-04-09 | Outpatient (CLI) | payer MEDICARE, BC ==
[2024-04-09 19:12] LABS: BUN/Creat Ratio 17.52 Ratio (12.00-20.00); Blood Urea Nitrogen 98.1 mg/dL (9.0-27.0); Calcium 8.5 mg/dL (8.7-10.3); Carbon Dioxide 16.8 mmol/L (21.6-31.8); Chloride 107 mmol/L (96-109); Glucose 132 mg/dL (70-110); Potassium 5.9 mmol/L (3.5-5.5); Sodium 140 mmol/L (135-145)
== END | disposition home or self-care (01) ==
LOC: LABWHC1 13:48
PROVIDERS: ATTEND Surgery
DX: N18.6 End stage renal disease (principal)
CPT/HCPCS: 36415; 80048